=== PATIENT | female | born 1945 | race Caucasian/White ===

== ENCOUNTER 2018-11-02 12:35 | Outpatient (CLI) | payer MEDICARE ==
[2018-11-02 13:01] LABS: Bilirubin Negative (Negative); Blood, Urine Trace (Negative); Clarity Clear (Clear); Glucose, Urine (Dipstick) Negative (Negative); Leukocyte Small (Negative); Nitrite Negative (Negative); Protein, Urine (Dipstick) Negative (Neg-Trace); Urobilinogen 0.2 mg/dL (Less than 2)
[2018-11-02 13:03] LABS: RBC/HPF 0-3 HPF (0-3)
[2018-11-02 13:04] LABS: Bacteria/HPF Rare-Few HPF (None Seen); Squamous Epithelial 0-3 HPF (0-3); WBC/HPF 0-3 HPF (0-3)
--- NOTE | 2018-11-02 13:11 | CT ---
CT of abdomen and pelvis: 11/02/2018 COMPARISON: None HISTORY: Hematuria TECHNIQUE: Axial CT imaging at 5 mm intervals from lung bases through pubic symphysis without contras t. Coronal reformatted imaging obtained. FINDINGS: Lack of contrast media limits assessment of the viscera, bowel, vascular structures, and fo r lymphadenopathy. The visualized lung bases are unremarkable. No free intraperitoneal air or fluid is seen. There is a small hypodense lesion in the anterior aspect of the liver on image 12 measuring 8 mm, too small to characterize, statistically likely representing a small cyst. The spleen, gallbladder, and adrenal glands appear unremarkable. The pancreas appears grossly unremarkable. No nephrolithiasis is noted on either side. No hydronephrosis or hydroureter is noted on either side. There is no calcification seen along the course of either ureter. There is a small sliding-type hiatal hernia present. Limited assessment of the bowel without oral contrast media demonstrates scattered diverticulosis of the colon, most prominent in the region of the sigmoid colon. No evidence for bowel inflammatory change or obstruction. The appendix is within normal limits. There is multilevel degenerative change noted within the lower thoracic spine and within the lower josey mbar spine. No worrisome lytic or blastic bone lesion. IMPRESSION: No evidence for nephrolithiasis or obstructive uropathy. If hematuria persists, perhaps a CT urogram would be beneficial. Numerous incidental findings as detailed above.
== END 2018-11-02 12:36 | disposition home or self-care (01) ==
LOC: MADLABBHPM 12:35
PROVIDERS: ATTEND Family Medicine
DX: R31.9 Hematuria, unspecified (principal)
CPT/HCPCS: 74176; 81001; 87086

== ENCOUNTER 2019-04-24 15:09 | Outpatient (CLI) | payer MEDICARE ==
--- NOTE | 2019-04-24 15:34 | RAD ---
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 Nondisplaced transversely oriented fracture involves the proximal shaft of the third metatarsal. No additional fracture is evident. Alignment appears anatomic . Joint spaces appear otherwise preserved. IMPRESSION: 1. Nondisplaced transversely oriented fracture of the proximal third metatarsal shaft. 2. First MTP degenerative change.
[2019-04-24 16:19] LABS: Anion Gap 14 mmol/L (10-20); BUN (Urea Nitrogen) 14 mg/dL (9.8-20.1); Calc. Creatinine Clearance 0 mL/min (70-130); Calcium 10.3 mg/dL (7.8-10.44); Carbon Dioxide 28 mmol/L (23-31); Chloride 103 mmol/L (98-107); Estimated GFR-MDRD 62; Glucose 131 mg/dL (83-110); Potassium 4.3 mmol/L (3.5-5.1); Sodium 141 mmol/L (136-145); Uric Acid 3.4 mg/dL (2.6-6.0)
== END 2019-04-24 15:10 | disposition home or self-care (01) ==
LOC: MADLABBHPM 15:09
PROVIDERS: ATTEND Family Medicine
DX: M79.671 Pain in right foot (principal); I10 Essential (primary) hypertension; S92.334A Nondisplaced fracture of third metatarsal bone, right foot, initial encounter for closed fracture; M19.071 Primary osteoarthritis, right ankle and foot
CPT/HCPCS: 36415; 80048; 84550; 85652

== ENCOUNTER 2019-06-06 14:02 | Outpatient (CLI) | payer MEDICARE ==
--- NOTE | 2019-06-06 14:27 | RAD ---
3 views right foot: 06/06/2019 COMPARISON: 04/24/2019 HISTORY: Reevaluate nondisplaced fracture FINDINGS: There is moderate degenerative change involving the dorsal aspect of the midfoot. Prior exa m demonstrated a transverse fracture at the base of the third metatarsal shaft. There is minimal interval callus formation in this region. The fracture line is still well seen. No new fracture is no geoff. There is prominent degenerative change at the first metatarsal-phalangeal joint. IMPRESSION: Mild interval healing of the fracture involving the proximal shaft third metatarsal. Frac ture line still well seen in this region. No new fracture seen.
== END 2019-06-06 14:03 | disposition home or self-care (01) ==
LOC: MADRAD 14:02
PROVIDERS: ATTEND Family Medicine
DX: S92.334D Nondisplaced fracture of third metatarsal bone, right foot, subsequent encounter for fracture with routine healing (principal)

== ENCOUNTER 2022-02-14 15:22 | Emergency (ER) | payer MEDICARE ==
[2022-02-14] MEDS ORDERED: Lidocaine 1% PF 5 ML VIAL ONE (15:52)
[2022-02-14] MEDS ORDERED: Boostrix 0.5 ML (Tdap) VIAL (>/=7 yrs of age) ONE (16:13)
== END 2022-02-14 16:42 | disposition home or self-care (01) ==
LOC: MADERS 15:22
DX: S60.457A Superficial foreign body of left little finger, initial encounter (principal); I10 Essential (primary) hypertension; W45.8XXA Other foreign body or object entering through skin, initial encounter; Z23 Encounter for immunization; Z79.899 Other long term (current) drug therapy
CPT/HCPCS: 90471; 90715; 96372

== ENCOUNTER 2025-04-16 08:30 | Outpatient (CLI) | payer MEDICARE ==
[2025-04-16 09:19] LABS: Hematocrit 39.4 % (36.0-47.0); Hemoglobin 12.3 g/dL (12.0-16.0); Mean Corpuscular Hemoglobin 29.7 pg (27.0-31.0); Mean Corpuscular Volume 95.3 fl (78.0-98.0); Platelet Count 253 10x3/uL (130-400); Red Blood Cell (RBC) Count 4.14 mill/uL (4.20-5.40); White Blood Cell (WBC) Count 5.6 10x3/uL (4.8-10.8)
[2025-04-16 09:22] LABS: Glucose, Urine (Dipstick) Negative (Negative); Leukocyte Negative (Negative); Protein, Urine (Dipstick) Negative (Neg-Trace); Specific Gravity, Urine 1.020 (1.005-1.030)
[2025-04-16 09:27] LABS: ALT (SGPT) 10 U/L (Less than 34); AST (SGOT) 20 U/L (11-34); Albumin 3.6 g/dL (3.1-4.5); Alkaline Phosphatase 85 U/L (40-110); Anion Gap 14 mmol/L (10-20); BUN (Urea Nitrogen) 26 mg/dL (9.8-20.1); BUN/Creatinine Ratio 17.57; Bilirubin, Direct 0.1 mg/dL (0.1-0.3); Bilirubin, Total 0.3 mg/dL (0.3-1.2); Calc. Creatinine Clearance 0 mL/min (70-130); Calcium 9.4 mg/dL (7.8-10.44); Carbon Dioxide 27 mmol/L (23-31); Cardiac Risk 2.9 (Less than 4.5); Chloride 105 mmol/L (98-107); Cholesterol 176 mg/dl (< 200 Desired); Glucose 95 mg/dL (83-110); HDL Cholesterol 60 mg/dL (>60 Neg Risk); LDL Cholesterol, Calculated 98 mg/dL; Potassium 4.8 mmol/L (3.5-5.1); Sodium 141 mmol/L (136-145); Triglycerides 92 mg/dL (Less than 150); Uric Acid 4.6 mg/dL (2.5-6.2)
[2025-04-16 15:54] LABS: Protein, Urine Random Quant Less than 10 mg/dL (1-14)
== END 2025-04-16 08:31 | disposition home or self-care (01) ==
LOC: MADLAB 08:30
PROVIDERS: ATTEND Internal Medicine Nephrology
DX: I12.9 Hypertensive chronic kidney disease with stage 1 through stage 4 chronic kidney disease, or unspecified chronic kidney disease (principal); N18.9 Chronic kidney disease, unspecified; M19.90 Unspecified osteoarthritis, unspecified site; K21.9 Gastro-esophageal reflux disease without esophagitis; K57.92 Diverticulitis of intestine, part unspecified, without perforation or abscess without bleeding; C44.92 Squamous cell carcinoma of skin, unspecified; C68.9 Malignant neoplasm of urinary organ, unspecified; K25.9 Gastric ulcer, unspecified as acute or chronic, without hemorrhage or perforation; Z87.442 Personal history of urinary calculi; Z79.899 Other long term (current) drug therapy
CPT/HCPCS: 36415; 80061; 80069; 80076; 81003; 82570; 84156; 84443; 84550; 85027